=== PATIENT | female | born 1990 | race Caucasian/White ===

== ENCOUNTER → 2021-05-24 | Outpatient (CLI) | payer OTHER ==
--- NOTE | 2021-05-24 12:25 | RAD ---
Study: XR CERVICAL SPINE 4-5V Indication: Neck pain. Comparison: None. Findings: Straightening of cervical lordosis. Maintained vertebral body and disc space height. No osseous encro achment on the neural foramina. No significant facet arthrosis or uncovertebral joint hypertrophy. In tact dens. Normal atlantodental interface. Unremarkable prevertebral soft tissues and lung apices. Impression: No acute osseous abnormality. Straightening of cervical lordosis. No significant spondylosis. Electronically signed by: LADARIUS CORNELIUS MD (05/24/2021 12:23 PM) [id number]
== END ==
LOC: RAD 09:53
PROVIDERS: ATTEND Family Medicine
DX: Z02.71 Encounter for disability determination (principal); M54.2 Cervicalgia
CPT/HCPCS: 72050